=== PATIENT | female | born 1975 | race Caucasian/White ===

== ENCOUNTER 2017-12-14 16:30 | Emergency (ER) | payer MEDICAID, OTHER ==
[2017-12-14] MEDS: KETOROLAC 15 MG INJ IM (18:02)
== END 2017-12-14 18:25 | disposition home or self-care (01) ==
LOC: FTE 16:30
DX: R51 Headache (principal); M54.2 Cervicalgia; M54.5 Low back pain
CPT/HCPCS: 81025; 96372; 99284-25